=== PATIENT | female | born 1970 | race Caucasian/White ===

== ENCOUNTER → 2017-04-16 | Outpatient (CLI) | payer BC ==
[2016-06-25 18:56] VITALS: BP 113/72
[~2017-04-16] MED LIST: NS 100 ML IV 100 ML IV ONE
--- NOTE | 2017-04-20 11:14 | CT ---
CT OF THE ABDOMEN WITH CONTRAST HISTORY: Elevated liver enzymes. History of colon cancer Comparison: None Technique: Multiple axial images of the abdomen were obtained following the administration of IV contrast. Dose reduction techniques including Automated Exposure Control (AEC) and adjustment of mA and kV were utli zed. Findings: The heart is normal in size. There is no pericardial effusion. Lung bases are clear without focal con solidation, pleural effusion or pneumothorax. Liver and spleen are normal in size, enhancement characteristics and contour. No focal lesions. The p ortal vein is patent. No ductal dilitation. Gallbladder is present. No calcified gallstones or gallbl adder wall thickening. The pancreas is unremarkable. Adrenal glands are normal. Kidneys enhance symme trically without hydronephrosis or nephrolithiasis. No bowel obstruction or inflammation of the visualized bowel. No abnormal appearing mesenteric or re troperitoneal lymph nodes. No free fluid or fluid collections. No aggressive osseous lesions. IMPRESSION: 1. No source of patient's elevated liver enzymes is identified on this examination. Reported By:
== END ==
LOC: RAD 08:31
PROVIDERS: ATTEND Internal Medicine
DX: R74.8 Abnormal levels of other serum enzymes (principal); R10.12 Left upper quadrant pain; Z85.038 Personal history of other malignant neoplasm of large intestine
CPT/HCPCS: 74160; A4222

== ENCOUNTER 2017-05-14 10:54 | Day surgery (SDC) | payer BC ==
[2017-05-14] MEDS ORDERED: D5 LR 1000 ML 1,000 ML IV ONE (11:01)
[2017-05-14] MEDS ORDERED: DIPRIVAN VIAL 20 ML ONE ×2 (12:22→12:31)
[2017-05-14 12:55] VITALS: BP 129/71
== END 2017-05-14 12:58 | disposition home or self-care (01) | DRG 392 ==
LOC: SURG1 10:54
PROVIDERS: ATTEND Internal Medicine Gastroenterology
PROC: 0DB68ZX Excision of Stomach, Via Natural or Artificial Opening Endoscopic, Diagnostic (ICD-10-PCS; principal; 2017-05-14 15:45)
PROC: 0DB88ZX Excision of Small Intestine, Via Natural or Artificial Opening Endoscopic, Diagnostic (ICD-10-PCS; principal; 2017-05-14 15:45)
PROC: 0DJ08ZZ Inspection of Upper Intestinal Tract, Via Natural or Artificial Opening Endoscopic (ICD-10-PCS; principal; 2017-05-14 15:45)
DX: R10.13 Epigastric pain (principal); R10.12 Left upper quadrant pain; K21.9 Gastro-esophageal reflux disease without esophagitis; Z79.1 Long term (current) use of non-steroidal anti-inflammatories (NSAID); K25.9 Gastric ulcer, unspecified as acute or chronic, without hemorrhage or perforation; K20.8 Other esophagitis; K29.60 Other gastritis without bleeding; B96.81 Helicobacter pylori [H. pylori] as the cause of diseases classified elsewhere
CPT/HCPCS: A4217; J3490; J7120

== ENCOUNTER 2017-05-21 07:34 | Day surgery (SDC) | payer BC ==
[2017-05-21] MEDS ORDERED: D5 LR 1000 ML 1,000 ML IV ONE (07:45)
[2017-05-21] MEDS ORDERED: DIPRIVAN VIAL 20 ML ONE ×2 (09:38→09:47)
[2017-05-21] MEDS ORDERED: VERSED ONE (09:43)
[2017-05-21 10:40] VITALS: BP 120/74
== END 2017-05-21 10:20 | disposition home or self-care (01) ==
LOC: SURG1 07:34
PROVIDERS: ATTEND Internal Medicine Gastroenterology
PROC: 0DJD8ZZ Inspection of Lower Intestinal Tract, Via Natural or Artificial Opening Endoscopic (ICD-10-PCS; principal; 2017-05-21 20:30)
DX: K64.0 First degree hemorrhoids (principal); Z86.010 Personal history of colon polyps; Z85.038 Personal history of other malignant neoplasm of large intestine; Z90.49 Acquired absence of other specified parts of digestive tract
CPT/HCPCS: A4217; J2250; J3490; J7120

== ENCOUNTER → 2017-06-16 | Outpatient (CLI) | payer BC ==
[2017-05-21 10:40] VITALS: BP 120/74
--- NOTE | 2017-06-16 11:51 | US ---
HISTORY: Right upper quadrant and epigastric pain Study: Gallbladder ultrasound Comparison: None Technique: Multiple sonographic images of the right quadrant were obtained. Findings: The liver measures 14.7 cm. No sonographic evidence of focal discrete hepatic mass is appreciated. Th e right kidney measures 12.0 x 5.9 x 5.0 cm. No shadowing echogenic stones are appreciated within the gallbladder. Gallbladder wall thickness is within normal limits measuring 2.4 mm. The common bile du ct is within normal limits in caliber measuring 4.3 mm. The pancreas was not visualized. IMPRESSION: Unremarkable right upper quadrant abdominal ultrasound. Reported By:
== END ==
LOC: RAD 09:25
PROVIDERS: ATTEND Internal Medicine Gastroenterology
DX: R10.11 Right upper quadrant pain (principal)
CPT/HCPCS: 76705

== ENCOUNTER → 2017-07-01 | Outpatient (CLI) | payer BC ==
--- NOTE | 2017-07-01 12:40 | NM ---
HIDA SCAN WITH EJECTION FRACTION. HISTORY: Left upper quadrant pain Comparison: None Technique: Multiple scintigraphic images of the abdomen were obtained the intravenous administration of 5.4 mCi of technetium labeled Choletec. Following distention of the gallbladder with radiotracer a 8 oz ensure was given. An estimated gallb ladder ejection fraction was calculated. Findings: Homogeneous uptake of radiotracer is seen throughout the liver. The intrabiliary ductal system is ob served normally. The common hepatic and common bile duct appear unremarkable with normal biliary-bow el transit. The gallbladder is observed to fill normally. A normal gallbladder ejection fraction of 50 percent (normal > 35%) is observed. IMPRESSION: 1. Normal hepatobiliary imaging scan. 2. Normal gallbladder ejection fraction of greater than 35%. Reported By:
== END ==
LOC: RAD 09:00
PROVIDERS: ATTEND Internal Medicine Gastroenterology
DX: R10.11 Right upper quadrant pain (principal); R11.0 Nausea
CPT/HCPCS: 78227; A9537

== ENCOUNTER → 2017-09-18 | Outpatient (CLI) | payer BC ==
[2017-09-18 08:52] LABS: BASOPHILS # (AUTO) 0.1 X10^3/uL (0.0-0.1); BASOPHILS % (AUTO) 1.1 % (0.2-1.0); EOSINOPHILS # (AUTO) 0.1 x10^3/uL (0.0-0.2); EOSINOPHILS % (AUTO) 2.3 % (0.9-2.9); HEMATOCRIT 43.1 % (36.0-47.0); HEMOGLOBIN 14.9 g/dL (12.0-16.0); LYMPHOCYTES # (AUTO) 1.6 X10^3/uL (1.3-2.9); LYMPHOCYTES % (AUTO) 27.3 % (21.0-51.0); MEAN CORPUSCULAR HEMOGLOBIN 29.5 pg (27.0-34.0); MEAN CORPUSCULAR HGB CONC 34.6 g/dL (33.0-35.0); MEAN CORPUSCULAR VOLUME 85.5 fL (80.0-100.0); MEAN PLATELET VOLUME 6.6 fL (7.4-11.0); MONOCYTES # (AUTO) 0.5 x10^3/uL (0.3-0.8); MONOCYTES % (AUTO) 8.9 % (0.0-13.0); NEUTROPHILS # (AUTO) 3.5 x10^3/uL (2.2-4.8); NEUTROPHILS % (AUTO) 60.4 % (42.0-75.0); PLATELET COUNT 359 X10^3/uL (150.0-450.0); RED BLOOD COUNT 5.04 X10^6/uL (3.5-5.4); RED CELL DISTRIBUTION WIDTH 13.2 % (11.6-16.5); WHITE BLOOD COUNT 5.8 X10^3/uL (3.6-10.0)
[2017-09-18 09:07] LABS: ALANINE AMINOTRANSFERASE 35 Units/L (12-78); ALBUMIN 4.2 g/dL (3.4-5.0); ALKALINE PHOSPHATASE 52 Units/L (46-116); ASPARTATE AMINO TRANSFERASE 18 Units/L (15-37); BLOOD UREA NITROGEN 21 mg/dL (7-18); CARBON DIOXIDE 27.8 mmol/L (21-32); CHLORIDE 102 mmol/L (98-107); CREATININE 0.86 mg/dL (0.55-1.02); SODIUM 138 mmol/L (136-145); TOTAL PROTEIN 8.1 g/dL (6.4-8.2); eGFR BLACK RACES > 60 (>60); eGFR NON BLACK RACES > 60 (>60)
[2017-09-18 09:12] LABS: HEMOGLOBIN A1C 5.1 %
[2017-09-18 09:26] LABS: ERYTHROCYTE SEDIMENTATION RATE 20 MM/HOUR (0-20)
[2017-09-18 10:34] LABS: PREALBUMIN 21.7 mg/dL (18-35.7)
== END ==
LOC: LAB 08:31
PROVIDERS: ATTEND Orthopaedic Surgery
DX: M17.11 Unilateral primary osteoarthritis, right knee (principal); M25.561 Pain in right knee
CPT/HCPCS: 36415; 80053; 83036; 84134; 85025; 85652; 86140; 93005; 93010